=== PATIENT | male | born 1995 | race Caucasian/White ===

== ENCOUNTER 2016-12-23 13:41 | Emergency (ER) | payer BC ==
[2016-12-23] MEDS ORDERED: Diph,Pert(Acell),Tet Vac 0.5 ML SYR IM ONE (15:08)
--- NOTE | 2016-12-23 15:11 | Emergency Department Record ---
History of Present Illness - General Chief complaint: Extremity Problem Stated complaint: RT LACERATION Time Seen by Provider: 12/23/16 13:55 Source: Patient Mode of Arrival: Ambulatory Limitations: No limitations - History of Present Illness Initial comments: pt was filling a tire w air when bungee snapped and hit him in r hand , ring finger, Complaint: Extremity pain Onset/Timin -: Hour(s) Location: Right, Hand Severity scale (1-10): 8 Quality: Aching, Crushing Consistency: Constant Improves with: Nothing Worsens with: Palpation Associated Symptoms: Denies other symptoms - Related Data Home Medications Medication Instructions Recorded Confirmed Last Taken No Home Med [NO HOME MEDS] 12/23/16 12/23/16 Unknown Allergies Allergy/AdvReac Type Severity Reaction Status Date / Time amoxicillin [From Augmentin] Allergy HIVES Verified 12/23/16 14:15 clavulanic acid Allergy HIVES Verified 12/23/16 14:15 [From Augmentin] Travel Screening - Travel/Exposure Within Last 30 Days Have you traveled within the last 30 days?: No - Travel/Exposure Within Last Year Have you traveled outside the [place] in the last year?: No - Additonal Travel Details Have you been exposed to anyone with a communicable illness?: No - Travel Symptoms Symptom Screening: None Review of Systems Reviewed: No additional complaints except as noted below Constitutional: Reports: As per HPI. Denies: Chills, Fever, Malaise, Night sweats, Weakness, Weight change Eyes: Reports: As per HPI. Denies: Eye discharge, Eye pain, Photophobia, Vision change ENT: Reports: As per HPI. Denies: Congestion, Dental pain, Ear pain, Epistaxis , Hearing loss, Throat pain Respiratory: Reports: As per HPI. Denies: Cough, Dyspnea, Hemoptysis, Stridor, Wheezes Cardiovascular: Reports: As per HPI. Denies: Arrhythmia, Chest pain, Dyspnea on exertion, Edema, Murmurs, Orthopnea, Palpitations, Paroxysmal nocturnal dyspnea, Rheumatic Fever, Syncope Endocrine: Reports: As per HPI. Denies: Fatigue, Heat or cold intolerance, Polydipsia, Polyuria Gastrointestinal: Reports: As per HPI. Denies: Abdominal pain, Constipation, Diarrhea, Hematemesis, Hematochezia, Melena, Nausea, Vomiting Genitourinary: Reports: As per HPI. Denies: Dysuria, Frequency, Hematuria, Incontinence, Retention, Testicular pain, Testicular mass, Urgency Musculoskeletal: Reports: As per HPI. Denies: Arthralgia, Back pain, Gout, Joint swelling, Myalgia, Neck pain Skin: Reports: As per HPI. Denies: Bruising, Change in color, Change in hair/ nails, Lesions, Pruritus, Rash Neurological: Reports: As per HPI. Denies: Abnormal gait, Confusion, Headache, Numbness, Paresthesias, Seizure, Tingling, Tremors, Vertigo, Weakness Psychiatric: Reports: As per HPI. Denies: Anxiety, Auditory hallucinations, Depression, Homicidal thoughts, Suicidal thoughts, Visual hallucinations Hematological/Lymphatic: Reports: As per HPI. Denies: Anemia, Blood Clots, Easy bleeding, Easy bruising, Swollen glands Past Medical History - SOCIAL HISTORY Smoking Status: Former smoker Alcohol Use: Occassional Drug Use: None - RESPIRATORY Hx Respiratory Disorders: No - CARDIOVASCULAR Hx Cardio Disorders: No - NEURO Hx Neuro Disorders: No Comment:: concusions - GI Hx GI Disorders: No - Hx Genitourinary Disorders: No - ENDOCRINE Hx Diabetes: No Hx Thyroid Disease: No - PSYCH Hx Psych Problems: No Family Medical History Any Significant Family History?: Yes Physical Exam - General General Appearance: Alert, Oriented x3, Cooperative, Mild distress - Head Head exam: Normal inspection - Eye Eye exam: Normal appearance, PERRL, EOMI Pupils: Normal accommodation - ENT ENT exam: Normal exam, Mucous membranes moist, Normal external ear exam, Normal orophraynx Ear exam: Normal external inspection. negative: External canal tenderness Nasal Exam: Normal inspection. negative: Discharge, Sinus tenderness Mouth exam: Normal external inspection, Tongue normal Teeth exam: Normal inspection. negative: Dental caries Throat exam: Normal inspection. negative: Tonsillar erythema, Tonsillar exudate - Neck Neck exam: Normal inspection, Full ROM. negative: Tenderness - Respiratory Respiratory exam: Normal lung sounds bilaterally. negative: Respiratory distress - Cardiovascular Cardiovascular Exam: Regular rate, Normal rhythm, Normal heart sounds - GI/Abdominal GI/Abdominal exam: Soft, Normal bowel sounds. negative: Tenderness - Rectal Rectal exam: Deferred - exam: Deferred - Extremities Extremities exam: Full ROM, Normal capillary refill, Tenderness Image of Hand: 1 - 3cm jagged lac - Back Back exam: Reports: Normal inspection, Full ROM. Denies: Muscle spasm, Rash noted, Tenderness - Neurological Neurological exam: Alert, CN II-XII intact, Normal gait, Oriented X3 - Psychiatric Psychiatric exam: Normal affect, Normal mood - Skin Skin exam: Dry, Intact, Normal color, Warm Course Vital Signs 12/23/16 14:10 Temperature 98.8 F Pulse Rate 79 Respiratory 18 Rate Blood Pressure 122/68 Pulse Ox 98 Disposition Disposition: Discharge Clinical Impression: Laceration Disposition: Home, Self-Care Condition: (1) Good Instructions: Laceration (ED), Suture Care (ED) Additional Instructions: sutures out in 10 days. follow up with family doctor, return sooner if worse Forms: Patient Portal Access Laceration - Other - Time Out Informed consent:: Informed consent obtained - Location Location of laceration:: Right Laceration located on:: Finger, Hand Laceration digit detail:: 4th Length of laceration:: 3 Length of laceration:: cm - Clean and Prep Laceration cleaning method:: Cleansed, Copious Irrigation, Removal of Particular Matter Laceration cleaning agent:: Normal Saline, Shur Clens - Local Anesthetic Lidocaine used:: 1% Lidocaine dose:: 1 mL EMLA cream used?: No - Medication Medicated for procedure?: No - Procedural Detail Tissue detail:: Torn, Debridement Foreign body in the wound?: Yes Undermining was preformed?: No Stent applied?: No [place] applied?: No Skin suture pattern:: Interrupted Suture material/size:: 5-0: Nylon Number of skin sutures:: 6
== END 2016-12-23 15:24 | disposition home or self-care (01) ==
LOC: ER 13:41
DX: S61.214A Laceration without foreign body of right ring finger without damage to nail, initial encounter (principal); W22.8XXA Striking against or struck by other objects, initial encounter
CPT/HCPCS: 12042; 90715; 96372; 99283; 99284

== ENCOUNTER 2017-06-18 15:34 | Emergency (ER) | payer BC ==
[2017-06-18] MEDS ORDERED: KETOROLAC 30 MG/ML VIAL IM ONE (16:01)
--- NOTE | 2017-06-18 16:05 | Emergency Department Record ---
History of Present Illness - General Chief Complaint: Back Pain/Injury Stated Complaint: LOWER BACK PAIN Time Seen by Provider: 06/18/17 15:47 Source: Patient Mode of Arrival: Ambulatory Limitations: No limitations - History of Present Illness Initial Comments: The patient is here due to worsening of his chronic low back pain. The patient had back surgery 4 years ago and has had mild pain since. Last night the patient was roughhousing with a family member and suddenly pulled backwards and felt pain in the low back. Since his chronic pain is much worse. He states the pain is very aching and does not radiate down his legs. The pain is very mild at rest and is much worse with any movement, twisting, and bending. He has had no leg numbness, weakness, or any bowel or bladder issues. The patient did take a [place] yesterday with some relief. MD Complaint: Back pain Onset/Timin -: Days(s) Similar Symptoms Previously: No Place: Home Radiation: None Severity: Moderate Severity scale (1-10): 7 Quality: Aching, Other Consistency: Constant Improves With: Walking, Other Worsens With: Immobilization, Supine Context: While lifting - Related Data Previous Rx's Medication Instructions Recorded Hydrocodone/Acetaminophen [[place] 1 - 2 each PO QID #20 tablet 06/18/17 5-325 Tablet] Allergies Allergy/AdvReac Type Severity Reaction Status Date / Time amoxicillin [From Augmentin] Allergy HIVES Verified 12/23/16 14:15 clavulanic acid Allergy HIVES Verified 12/23/16 14:15 [From Augmentin] Travel Screening - Travel/Exposure Within Last 30 Days Have you traveled within the last 30 days?: No Review of Systems Constitutional: Denies: Chills, Fever Eyes: Denies: Eye discharge ENT: Denies: Congestion Respiratory: Denies: Cough, Dyspnea Past Medical History - SOCIAL HISTORY Smoking Status: Former smoker Alcohol Use: Occasional Drug Use: None - RESPIRATORY Hx Respiratory Disorders: No - CARDIOVASCULAR Hx Cardio Disorders: No - NEURO Hx Neuro Disorders: No Comment:: concussions - GI Hx GI Disorders: No - Hx Genitourinary Disorders: No - ENDOCRINE Hx Diabetes: No Hx Thyroid Disease: No - MUSCULOSKELETAL Hx Musculoskeletal Disorders: Yes - PSYCH Hx Psych Problems: No - HEMATOLOGY/ONCOLOGY Hx Hematology/Oncology Disorders: No Family Medical History Any Significant Family History?: No Physical Exam - General General Appearance: Alert, Oriented x3, Cooperative, No acute distress - Head Head exam: Atraumatic, Normocephalic, Normal inspection - Eye Eye exam: Normal appearance, PERRL - Neck Neck exam: Normal inspection, Full ROM. negative: Tenderness - Respiratory Respiratory exam: Normal lung sounds bilaterally. negative: Respiratory distress - Cardiovascular Cardiovascular Exam: Regular rate, Normal rhythm, Normal heart sounds - GI/Abdominal GI/Abdominal exam: Soft, Normal bowel sounds. negative: Tenderness - Rectal Rectal exam: Normal inspection, Normal rectal tone. negative: Decreased rectal tone - Extremities Extremities exam: Normal inspection, Full ROM, Normal capillary refill, Other ( Neg SLR bilaterally.). negative: Tenderness - Back Back exam: Reports: Normal inspection, Paraspinal tenderness (L3-5 with mild spinal tenderness.), Vertebral tenderness (mild L3-5.). Denies: CVA tenderness (R), CVA tenderness (L), Muscle spasm - Neurological Neurological exam: Alert, Altered, Normal gait, Oriented X3, Reflexes normal ( The patella and achilles reflexes are 2+ and equal bilaterally. ). negative: Abnormal gait, Motor sensory deficit (The motor and sensory exams are 5/5 and equal bilaterally.) Course Vital Signs 06/18/17 15:40 Temperature 97.7 F Pulse Rate 78 Respiratory 18 Rate Blood Pressure 126/86 Pulse Ox 97 - Reevaluation(s) Reevaluation #1: The patient is doing well at this time. He is able to move easier with less pain. He also has no leg numbness, weakness, or any bowel or bladder issues. I did discuss the need for F/U with his PCP and the need to return to the ER for any worsening symptoms. 06/18/17 17:06 Medical Decision Making - Data Complexity MDM Data: X-Ray Ordered and/or Reviewed (Lumbar spine: No acute changes.) Disposition Disposition: Discharge Clinical Impression: Low back strain Qualifiers: Encounter type: initial encounter Qualified Code(s): S39.012A - Strain of muscle, fascia and tendon of lower back, initial encounter Disposition: Home, Self-Care Condition: (1) Good Instructions: Low Back Strain (ED) Additional Instructions: Please rest and take the [place] as directed. Please see your PCP in 2-3 days for recheck. If your pain worsens or you develop any leg numbness, weakness, or bowel or bladder issues, please return to the ER immediately for recheck. Prescriptions: Hydrocodone/Acetaminophen [[place] 5-325 Tablet] 1 - 2 each PO QID #20 tablet Forms: Patient Portal Access Time of Disposition: 17:04 Quality - Quality Measures Quality Measures: N/A - Blood Pressure Screening View Details: Yes Does Patient Have Any of the Following: No Blood Pressure Classification: Pre-Hypertensive BP Reading Systolic Measurement: 123 Diastolic Measurement: 66 Screening for High Blood Pressure: < Pre-Hypertensive BP, F/U Documented > [ [id number]] Pre-Hypertensive Follow-up Interventions: Referral to alternative/primary care provider.
[2017-06-18] MEDS ORDERED: HYDROCODONE/APAP 5/325MG TABLET PO ONE (16:53)
--- NOTE | 2017-06-19 20:04 | RADIOLOGY REPORT ---
EXAM: LUMBAR SPINE W/OBLIQUES HISTORY: ACUTE NON-RADIATING LOWER BACK PAIN ONE DAY POST LIFTING/TWISTING INJURY. PRIOR LAMINECTOMY. TECHNIQUE: AP, lateral, and both oblique views of the lumbar spine are obtained as well as a spot lateral view of the lumbosacral junction. COMPARISON: None. FINDINGS: There is normal bone mineralization. There are five [id number] lumbar-type vertebrae. The vertebral bodies are normal in alignment and height. No acute fracture is seen. No lytic or blastic bone lesion is identified. There is borderline disc space narrowing at the L4-L5 level. The intervertebral discs are otherwise unremarkable. The facet joints are maintained. The sacroiliac joints are maintained. IMPRESSION: 1. NO RADIOGRAPHIC EVIDENCE OF AN ACUTE OSSEOUS OR LIGAMENTOUS INJURY. NO LYTIC OR BLASTIC BONE LESION. 2. QUESTIONABLE MINIMAL DISC SPACE NARROWING AT THE L4-L5 LEVEL. JOB NUMBER: [id number] MTDD
== END 2017-06-18 17:16 | disposition home or self-care (01) ==
LOC: ER 15:34
DX: S39.012A Strain of muscle, fascia and tendon of lower back, initial encounter (principal); Y93.83 Activity, rough housing and horseplay; Y92.009 Unspecified place in unspecified non-institutional (private) residence as the place of occurrence of the external cause
CPT/HCPCS: 99283; 96372; 99284; 72110; J1885